=== PATIENT | female | born 1970 | race Caucasian/White ===

== ENCOUNTER → 2016-12-10 | Outpatient (CLI) | payer OTHER | LOC: FIMAGING 10:21 | DX: Z12.31 Encounter for screening mammogram for malignant neoplasm of breast (principal); Z80.3 Family history of malignant neoplasm of breast | CPT/HCPCS: G0202 ==

== ENCOUNTER → 2016-12-22 | Outpatient (CLI) | payer OTHER | LOC: FIMAGING 08:51 | PROVIDERS: ATTEND Internal Medicine | DX: Z12.39 Encounter for other screening for malignant neoplasm of breast (principal); R92.2 Inconclusive mammogram; Z80.3 Family history of malignant neoplasm of breast | CPT/HCPCS: G0206 ==

== ENCOUNTER → 2017-01-10 | Outpatient (CLI) | payer OTHER ==
[~2017-01-10] MED LIST: BUPIVACAINE 0.5% 10 ML SDV ONE; LIDO/EPI 1% **Not for Epidural 20 ML MDV ONE; LIDOCAINE 1% 300 MG/30 ML SDV ONE; THROMBIN (BOVINE) 5,000 UNIT VIAL TP ONE
== END ==
LOC: FIMAGING 07:06
PROVIDERS: ATTEND Internal Medicine
PROC: 0HBT3ZX Excision of Right Breast, Percutaneous Approach, Diagnostic (ICD-10-PCS; principal; 2017-01-10)
DX: C50.911 Malignant neoplasm of unspecified site of right female breast (principal)

== ENCOUNTER → 2017-01-28 | Outpatient (CLI) | payer OTHER ==
[~2017-01-28] MED LIST changes: -BUPIVACAINE 0.5% 10 ML SDV ONE; +GADOBUTROL 10 ML VIAL IVP ONE; -LIDO/EPI 1% **Not for Epidural 20 ML MDV ONE; -LIDOCAINE 1% 300 MG/30 ML SDV ONE; -THROMBIN (BOVINE) 5,000 UNIT VIAL TP ONE
== END ==
LOC: FIMAGING 08:54
PROVIDERS: ATTEND Surgery
DX: C50.411 Malignant neoplasm of upper-outer quadrant of right female breast (principal); D05.01 Lobular carcinoma in situ of right breast
CPT/HCPCS: 0159T; A9585; C8908

== ENCOUNTER → 2017-02-09 | Day surgery (SDC) | payer OTHER ==
[~2017-02-09] MED LIST changes: -GADOBUTROL 10 ML VIAL IVP ONE; +LIDOCAINE 1% 300 MG/30 ML SDV ONE
== END | disposition home or self-care (01) ==
LOC: FIMAGING 07:06
PROVIDERS: ATTEND Surgery
PROC: 3E0W3KZ Introduction of Other Diagnostic Substance into Lymphatics, Percutaneous Approach (ICD-10-PCS; principal; 2017-02-09)
PROC: 3E0W3HZ Introduction of Radioactive Substance into Lymphatics, Percutaneous Approach (ICD-10-PCS; principal; 2017-02-09)
DX: C50.911 Malignant neoplasm of unspecified site of right female breast (principal)
CPT/HCPCS: 19281; 76098; 78195; A9520

== ENCOUNTER 2017-02-22 11:02 | Day surgery (SDC) | payer OTHER ==
--- NOTE | 2017-02-21 09:03 | GHP ---
[f rep st] PREOP HISTORY AND PHYSICAL DATE OF ADMISSION: 02/22/2017 DATE OF SURGERY: 02/22/2017. CHIEF COMPLAINT: Right breast invasive ductal carcinoma. HISTORY OF PRESENT ILLNESS: The patient is a 46-year-old woman with a right upper outer breast inva sive ductal carcinoma. She had a mammogram on 12/10/2016 which showed asymmetric density in the upp er outer quadrant. She had a diagnostic mammogram on 12/22/2016 that showed dense residual fibrogla ndular pattern. Ultrasound showed a 10 x 10 x 10 mm mass at the 11 o'clock position 5 cm from the n ipple. There was also 17 mm cyst. The mass was biopsied on 01/10/2017 which showed invasive ductal carcinoma, ER/IL positive, HER-2/mannie was not sent, Ki-67 1%. She was taken to the operating room o n 02/09/2017 for lumpectomy with sentinel lymph node biopsy. The sentinel lymph node was negative. The lumpectomy showed invasive ductal carcinoma 10 mm maximal dimension, [place] grade 1, ER pos itive, IL positive, HER-2/mannie was sent and is pending. The inferior margin was positive for invasiv e ductal carcinoma with lobular features. She will return to the operating room for re-excision of the inferior margin. PAST MEDICAL HISTORY: Breast cancer as above, otherwise none. PAST SURGICAL HISTORY: Lumpectomy and tubal ligation. MEDICATIONS: No active medications. ALLERGIES: Shellfish, sulfa. FAMILY HISTORY: Mother diagnosed with breast cancer at 72. Uncle with colon cancer at 70 and fathe r with lymphoma at age 55. SOCIAL HISTORY: She reports drinking alcohol. She exercises regularly. She denies tobacco or recr eational drug use. REVIEW OF SYSTEMS: A 10-point review of systems is negative aside from HPI. PHYSICAL EXAMINATION: GENERAL: Well-developed, well-nourished, woman in no acute distress. HEENT: Normocephalic, atraumatic. No hearing deficits. Pupils equal and round. No scleral icterus. Mu cous membranes moist. NECK: Trachea midline. RESPIRATORY: Clear to auscultation bilaterally. No increased work of breathing. CARDIOVASCULAR: Regular rate and rhythm. No peripheral edema. SKIN : Warm and dry. BREAST EXAM: Performed in supine position. Right upper outer incision clean, dry and intact without evidence of infection. No palpable breast masses bilaterally. MUSCULOSKELETAL: Normal gait. Normal nails. PSYCH: Mood and affect normal. NEURO: Grossly intact. IMPRESSION AND PLAN: The patient is a 46-year-old woman with a right breast invasive ductal carcino ma. She had a positive inferior margin on final pathology. She will return to the operating room f or reexcision of the inferior margin. We discussed risks including infection, bleeding, or need for additional procedures, alteration in cosmesis. She understands the risks and would like to proceed . Procedure scheduled for 02/22/2017. The patient was additionally seen by Dr. Nori Padgett who agr ees with the above impression and plan. /[id number]/MODL
[2017-02-22] MEDS ORDERED: ceFAZolin 2 GM/DEXTROSE 100 ML IV ONE (11:33)
[2017-02-22 11:42] VITALS: PULSE 69
--- NOTE | 2017-02-22 11:44 | PDHPUP ---
History & Physical Update H&P update statement: This history and physical update is based on an assessment of the patient which was completed after admission or registration (within 24 hours), but prior to the surgery/procedure. H&P update: H&P reviewed & patient examined, no change in patient's condition since H&P completed
[2017-02-22] MEDS ORDERED: BUPIVACAINE/EPI 0.5% 30 ML SDV ONE (12:03)
[2017-02-22] MEDS ORDERED: LIDOCAINE 1% 300 MG/30 ML SDV ONE (12:03)
[2017-02-22] MEDS ORDERED: LR 1,000 ML IV ONE (12:10)
[2017-02-22] MEDS ORDERED: LIDOCAINE 1% 2 ML INJ ID PRN (12:10)
[2017-02-22 12:18] LABS: % IMMATURE GRANULYOCYTES 0.2 % (0.0-1.1); ABSOLUTE IMMATURE GRANULOCYTES 0.01 10^3/uL (0.00-0.10); ADD DIFF? NO; ADD MORPH? NO; ADD SCAN? NO; ATYPICAL LYMPHOCYTE FLAG 0 (0-99); FRAGMENT RBC FLAG 0 (0-99); HEMATOCRIT 40.3 % (38.0-47.0); HEMOGLOBIN 14.1 g/dL (12.6-16.3); LEFT SHIFT FLG 0 (0-99); LIPEMIA HEMOLYSIS FLAG 90 (0-99); MEAN CELL HEMOGLOBIN 32.8 pg (27.9-34.1); MEAN CELL VOLUME 93.7 fL (81.5-99.8); MEAN PLATELET VOLUME 10.5 fL (8.7-11.7); PLATELET CLUMPS FLAG 0 (0-99); PLATELET COUNT 186 10^3/uL (150-400); RED CELL DISTRIBUTION WIDTH 12.2 % (11.5-15.2)
[2017-02-22] MEDS ORDERED: MIDAZOLAM 2 MG/2 ML VIAL IVP ONE (12:21)
--- NOTE | 2017-02-22 12:22 | PDANEPAE ---
ANE History of Present Illness here for breast biopsy ANE Past Medical History - Cardiovascular History Hx Hypertension: No Hx Arrhythmias: No Hx Chest Pain: No Hx Coronary Artery / Peripheral Vascular Disease: No Hx CHF / Valvular Disease: No Hx Palpitations: No - Pulmonary History Hx COPD: No Hx Asthma/Reactive Airway Disease: No Hx Recent Upper Respiratory Infection: No Hx Oxygen in Use at Home: No Hx Sleep Apnea: No Sleep Apnea Screening Result - Last Documented: Negative - Neurologic History Hx Cerebrovascular Accident: No Hx Seizures: No Hx Dementia: No - Endocrine History Hx Diabetes: No - Renal History Hx Renal Disorders: No - Liver History Hx Hepatic Disorders: No - Neurological & Psychiatric Hx Hx Neurological and Psychiatric Disorders: No - Cancer History Hx Cancer: No Cancer History Comment: R BREAST CA - Congenital Disorder History Hx Congenital Disorders: No - GI History Hx Gastrointestinal Disorders: No - Other Health History Other Health History: NEG - Chronic Pain History Chronic Pain: No - Surgical History Prior Surgeries: LUMPECTOMY R 01/2017. TUBAL LIGATION 2005 ANE Review of Systems Review of systems is: negative - Exercise capacity Exercise capacity: >=4 METS METS (RN): 5 METS ANE Patient History - Allergies Allergies/Adverse Reactions: Sulfa (Sulfonamide Antibiotics) Allergy (Verified 02/21/17 12:53) - Home Medications Home Medications: Herbals/Supplements -Info Only 02/21/17 [Last Taken 02/20/17] - NPO status NPO Status: no food or drink >8 hours NPO Since - Liquids (Date): 02/21/17 NPO Since - Liquids (Time): 23:55 NPO Since - Solids (Date): 02/21/17 NPO Since - Solids (Time): 23:55 - Anes Hx Anes Hx: no prior problems - Smoking Hx Smoking Status: Never smoked - Family Anes Hx Family Hx Anesthesia Complications: NEG ANE Labs/Vital Signs - Labs Result Diagrams: 02/22/17 12:05 02/22/17 12:05 - Vital Signs Blood Pressure: 113/72 Heart Rate: 69 Respiratory Rate: 16 O2 Sat (%): 97 Height: 170.18 cm Weight: 52.163 kg ANE Physical Exam - Airway Neck exam: FROM Mallampati Score: Class 1 Mouth exam: normal dental/mouth exam - Pulmonary Pulmonary: no respiratory distress - Cardiovascular Cardiovascular: regular rate and rhythym - ASA Status ASA Status: I ANE Anesthesia Plan Anesthesia Plan: GA with mask
[2017-02-22] MEDS ORDERED: PROPOFOL/EMULSION 500 MG/50 ML BOTTLE IV ONE (12:34)
[2017-02-22] MEDS ORDERED: fentaNYL 100 MCG/2 ML INJ ONE (12:36)
[2017-02-22 12:41] LABS: ALANINE AMINOTRANSFERASE 28 IU/L (9-52); ALBUMIN 4.5 g/dL (3.5-5.0); ALKALINE PHOSPHATASE 59 IU/L (38-126); ANION GAP 14 mEq/L (8-16); ASPARTATE AMINOTRANSFERASE 27 IU/L (14-46); BILIRUBIN,TOTAL 2.1 mg/dL (0.1-1.4); CALCIUM 9.9 mg/dL (8.5-10.4); CARBON DIOXIDE 21 mEq/l (22-31); CHLORIDE 109 mEq/L (97-110); CREATININE 0.8 mg/dL (0.6-1.0); GLOMERULAR FILTRATION RATE > 60; GLUCOSE 84 mg/dL (70-100); POTASSIUM 4.2 mEq/L (3.5-5.2); SODIUM 144 mEq/L (134-144); TOTAL PROTEIN 7.3 g/dL (6.3-8.2)
[2017-02-22] MEDS ORDERED: OXYCODONE/APAP 5/325 TAB PO PRN (12:53)
[2017-02-22] MEDS ORDERED: NALOXONE HCL 0.4 MG/ML INJ IVP PRN (12:53)
[2017-02-22] MEDS ORDERED: HYDROCODONE/APAP 5/325 TAB PO PRN (12:53)
[2017-02-22] MEDS ORDERED: PROMETHAZINE HCL 25 MG/ML INJ IVP PRN (12:53)
[2017-02-22] MEDS ORDERED: fentaNYL 100 MCG/2 ML INJ IVP PRN (12:53)
[2017-02-22] MEDS ORDERED: ONDANSETRON 4 MG/2 ML VIAL IVP PRN (12:53)
[2017-02-22 12:59] LABS: VITAMIN D 25-HYDROXY TOTAL 90.8 ng/mL (30-100)
--- NOTE | 2017-02-22 13:26 | POSTANESTH ---
Post Anesthetic Evaluation Cardiovascular Status: Normal, Stable Respiratory Status: Normal, Stable Level of Consciousness/Mental Status: Can Participate in Eval Pain Control: Adequate, Prn Tx Ordered Nausea/Vomiting Control: Adequate, Prn Tx Ordered Complications Possibly Related to Anesthesia: None Noted
[2017-02-22 13:42] LABS: BILIRUBIN-CONJUGATED 0.2 mg/dL (0.0-0.5); BILIRUBIN-UNCONJUGATED 1.9 mg/dL (0.0-1.1)
[2017-02-22 14:12] VITALS: BP 133/85; RESP 14
[2017-02-22 14:25] VITALS: O2SAT 100
[2017-02-22 14:29] VITALS: TEMP 97.9
--- NOTE | 2017-02-22 14:53 | GOP ---
[f rep st] OPERATIVE REPORT DATE OF OPERATION: 02/22/2017 SURGEON: Nori Padgett MD PIPER HELPER: Evelyn Ochoa, TIERA. ANESTHESIA: Ezekiel Davis MD/monitored anesthesia care with IV sedation. PREOPERATIVE DIAGNOSIS: Right breast upper outer invasive ductal carcinoma with positive inferior margin. POSTOPERATIVE DIAGNOSIS: Right breast upper outer invasive ductal carcinoma with positive inferior margin. PROCEDURE PERFORMED: Re-excision, inferior margin right breast. FINDINGS: Seroma. ESTIMATED BLOOD LOSS: 5 cc. INDICATIONS: Patient is a 46-year-old woman who has invasive ductal carcinoma of the right upper outer breast. On her final pathology she had a positive inferior margin. She presents for re-excision. DESCRIPTION OF PROCEDURE: Patient was brought into the operating room, placed supine on the table. Monitored anesthesia care with IV sedation was performed. Her right breast was prepped and draped in the usual sterile fashion. I infiltrated the area with 10 cc of 0.5% Marcaine mixed with 1% lidocaine. I made an incision over her previous scar. I evacuated the seroma. I created new inferior skin flap and dissected down all way to the pectoralis muscle. The new margin was marked with a silk suture. Hemostasis was achieved. The wound was closed with 3-0 Vicryl as a deep layer and 3-0 Vicryl, 4-0 Monocryl at the skin. Mastisol, Steri-Strips, and sterile dressing were applied. She was awakened in the operating room, transferred to PACU in stable condition. /[id number]/MODL MTDD
== END 2017-02-22 14:54 | disposition home or self-care (01) ==
LOC: FSGY 11:02
PROVIDERS: ATTEND Surgery
PROC: 0HBT0ZZ Excision of Right Breast, Open Approach (ICD-10-PCS; principal; 2017-02-22 12:30)
DX: C50.411 Malignant neoplasm of upper-outer quadrant of right female breast (principal)
CPT/HCPCS: J0690; J2250; J2704; J3010

== ENCOUNTER → 2017-12-15 | Outpatient (CLI) | payer OTHER | LOC: FIMAGING 08:20 | PROVIDERS: ATTEND Internal Medicine Hematology & Oncology | DX: Z12.31 Encounter for screening mammogram for malignant neoplasm of breast (principal); Z85.3 Personal history of malignant neoplasm of breast; Z80.3 Family history of malignant neoplasm of breast ==

== ENCOUNTER → 2018-01-05 | Outpatient (CLI) | payer OTHER | LOC: FIMAGING 09:35 | PROVIDERS: ATTEND Internal Medicine Hematology & Oncology | DX: R92.8 Other abnormal and inconclusive findings on diagnostic imaging of breast (principal); Z85.3 Personal history of malignant neoplasm of breast ==

== ENCOUNTER → 2018-08-10 | Outpatient (CLI) | payer OTHER | LOC: FIMAGING 08:56 | PROVIDERS: ATTEND Internal Medicine Hematology & Oncology | DX: N60.02 Solitary cyst of left breast (principal); C50.411 Malignant neoplasm of upper-outer quadrant of right female breast; Z80.3 Family history of malignant neoplasm of breast ==

== ENCOUNTER → 2018-12-20 | Outpatient (CLI) | payer OTHER | LOC: FIMAGING 08:41 | PROVIDERS: ATTEND Internal Medicine | DX: Z12.31 Encounter for screening mammogram for malignant neoplasm of breast (principal); Z85.3 Personal history of malignant neoplasm of breast; Z80.3 Family history of malignant neoplasm of breast ==